=== PATIENT | female | born 1990 | race Caucasian/White ===

== ENCOUNTER 2023-07-20 16:40 | Emergency (ER) | payer OTHER ==
[~2023-07-20] VITALS: Ht 165.1 cm; Wt 75.9 kg
[2023-07-20] MEDS ORDERED: LIDO2SOL26 MT (17:12)
[2023-07-20] MEDS ORDERED: AZIT500T66 PO (17:12)
[2023-07-20] MEDS: cefTRIAXone SOD 1,000 MG VL IM ONE (17:16)
[2023-07-20] MEDS: LIDOCAINE VISCOUS 2% 15ML UD MT ONE (17:18)
[2023-07-20 17:26] VITALS: BP 154/73; PULSE 79; RESP 18; TEMP 99.6; O2SAT 98
== END 2023-07-20 17:27 | disposition home or self-care (01) ==
LOC: ER 16:40
DX: J03.90 Acute tonsillitis, unspecified (principal); J04.0 Acute laryngitis; Z79.899 Other long term (current) drug therapy
CPT/HCPCS: 96372; 99283; J0696

== ENCOUNTER 2023-09-02 18:20 | Emergency (ER) | payer OTHER ==
[~2023-09-02] VITALS: Ht 165.1 cm; Wt 75.9 kg
[~2023-09-02 18:20] MED LIST: AZIT500T66 PO; LIDO2SOL26 MT
[2023-09-02] MEDS: IOHEXOL 300 MG/ML 100ML BOTTLE IJ ONE (19:16)
[2023-09-02] MEDS: ONDANSETRON ODT 4 MG TAB PO ONE ×2 (19:25→21:16)
[2023-09-02] MEDS: HYDROmorphone HCL 2 MG/ML VL/or syr IM ONE (19:25)
[2023-09-02] MEDS: ONDANSETRON HCL 4 MG/2 ML VIAL IV ONE (19:33)
[2023-09-02] MEDS: HYDROmorphone HCL 2 MG/ML VL/or syr IV ONE ×2 (19:34→21:19)
[2023-09-02 19:59] LABS: Urine Bacteria None Seen /hpf (None Seen)
[2023-09-02 20:03] LABS: Urine Blood Negative /uL (Negative); Urine Clarity Clear (Clear); Urine Color Light-Yellow (Yellow); Urine Protein, UAD Negative (Negative); Urine Specific Gravity 1.014 (1.001-1.035); Urine Urobilinogen Normal (Negative); Urine WBC 1 /hpf (0 - 5)
[2023-09-02 20:09] LABS: Basophils # (auto) 0.1 10 ^3/uL (0-0.2); Basophils % (auto) 0.5 % (0.0-2.0); Eosinophils # (auto) 0.2 10 ^3/uL (0-0.8); Eosinophils % (auto) 1.5 % (0.0-7.0); Hematocrit 39.3 % (36.0-46.0); Lymphocytes # (auto) 3.1 10 ^3/uL (0.4-5.4); Lymphocytes % (auto) 29.1 % (10.0-50.0); Mean Corpuscular Hemoglobin 29.5 pg (28.0-32.0); Mean Corpuscular Hgb Conc. 33.1 g/dL (32.0-36.0); Mean Corpuscular Volume 89.2 fL (80.0-100.0); Monocytes # (auto) 0.9 10 ^3/uL (0-1.3); Monocytes % (auto) 8.1 % (0.0-12.0); Neutrophils # (auto) 6.5 10 ^3/uL (1.6-8.6); Neutrophils % (auto) 60.8 % (37.0-80.0); Nucleated Red Blood Cells % 0.1 %; Red Blood Cells 4.41 10^6/uL (4.0-5.20); White Blood Cell 10.7 10^3/uL (4.4-10.8)
[2023-09-02 20:20] LABS: Alanine Aminotransferase 80 U/L (7-40); Albumin 4.3 g/dL (3.2-4.8); Alkaline Phosphatase 103 U/L (46-116); Anion Gap 9 (5-15); Aspartate Aminotransferase 35 U/L (13-40); BUN/Creatinine Ratio 11.9 (10.0-20.0); Bilirubin, Total 0.3 mg/dL (0.2-1.0); Blood Urea Nitrogen 7 mg/dL (9-23); Calcium 9.6 mg/dL (8.7-10.4); Carbon Dioxide 24 mmol/L (20-30); Chloride 102 mmol/L (98-107); Glucose 90 mg/dL (74-106); Potassium 3.7 mmol/L (3.5-5.1); Sodium 135 mmol/L (136-145); Total Protein 7.2 g/dL (5.7-8.2)
[2023-09-02] MEDS: DexAMETHasone SOD PHOS 10MG/1ML VIAL INJ IV ONE (20:40)
[2023-09-02 21:23] VITALS: TEMP 97.7
[2023-09-02] MEDS ORDERED: PERCOT PO (21:23)
[2023-09-02] MEDS ORDERED: ZOFR4T PO (21:23)
[2023-09-02] MEDS ORDERED: IBUP-1455 PO (21:23)
[2023-09-02 21:49] VITALS: BP 152/97; PULSE 75; RESP 16; O2SAT 97
== END 2023-09-02 21:51 | disposition home or self-care (01) ==
LOC: ER 18:20
DX: R10.2 Pelvic and perineal pain (principal); Z79.899 Other long term (current) drug therapy
CPT/HCPCS: 36415; 74177; 80053; 81001; 85025; 96374; 96375; 96376; 99285; J1100; J1170; J2405; Q0162; Q9967

== ENCOUNTER 2024-01-20 09:27 | Emergency (ER) | payer OTHER ==
[~2024-01-20] VITALS: Ht 165.1 cm; Wt 75.0 kg
[~2024-01-20 09:27] MED LIST changes: +IBUP-1455 PO; +PERCOT PO; +ZOFR4T PO
[2024-01-20 09:53] VITALS: PULSE 74; RESP 14; O2SAT 97
[2024-01-20 10:28] LABS: Basophils # (auto) 0.1 10 ^3/uL (0-0.2); Basophils % (auto) 0.5 % (0.0-2.0); Eosinophils # (auto) 0.1 10 ^3/uL (0-0.8); Eosinophils % (auto) 0.8 % (0.0-7.0); Hematocrit 41.3 % (36.0-46.0); Hemoglobin 13.6 g/dL (12.2-16.2); Lymphocytes # (auto) 2.4 10 ^3/uL (0.4-5.4); Lymphocytes % (auto) 22.9 % (10.0-50.0); Mean Corpuscular Hemoglobin 29.6 pg (28.0-32.0); Mean Corpuscular Volume 89.7 fL (80.0-100.0); Monocytes # (auto) 0.7 10 ^3/uL (0-1.3); Monocytes % (auto) 6.6 % (0.0-12.0); Neutrophils # (auto) 7.1 10 ^3/uL (1.6-8.6); Neutrophils % (auto) 69.2 % (37.0-80.0); Platelet Count (auto) 307 10^3/uL (140-450); Red Blood Cells 4.61 10^6/uL (4.0-5.20); Red Cell Distribution Width 13.8 % (11.8-14.3); White Blood Cell 10.3 10^3/uL (4.4-10.8)
[2024-01-20] MEDS: SODIUM CHLORIDE 0.9% 500 ML IVB ONE (10:36)
[2024-01-20] MEDS: METOCLOPRAMIDE HCL 5MG/ml INJ 2ml VIAL IV ONE (10:36)
[2024-01-20 10:37] LABS: Alanine Aminotransferase 76 U/L (7-40); Albumin 4.4 g/dL (3.2-4.8); Alkaline Phosphatase 74 U/L (46-116); Anion Gap 7 (5-15); Aspartate Aminotransferase 19 U/L (13-40); BUN/Creatinine Ratio 26.5 (10.0-20.0); Bilirubin, Total 0.5 mg/dL (0.2-1.0); Blood Urea Nitrogen 13 mg/dL (9-23); Calcium 9.5 mg/dL (8.7-10.4); Carbon Dioxide 23 mmol/L (20-30); Chloride 104 mmol/L (98-107); Glucose 89 mg/dL (74-106); Magnesium 1.9 mg/dL (1.6-2.6); Potassium 3.8 mmol/L (3.5-5.1); Sodium 134 mmol/L (136-145); Total Protein 7.5 g/dL (5.7-8.2)
[2024-01-20] MEDS: KETOROLAC TROMETH 30 MG/ML 1ML VIAL IV ONE (10:37)
[2024-01-20 11:07] LABS: Lipase 38 U/L (12-53)
[2024-01-20] MEDS: IOHEXOL 300 MG/ML 100ML BOTTLE IJ ONE (11:09)
[2024-01-20 11:37] LABS: Urine Bacteria FEW /hpf (None Seen); Urine Blood Negative /uL (Negative); Urine Clarity Clear (Clear); Urine Protein, UAD Negative (Negative); Urine Specific Gravity 1.011 (1.001-1.035); Urine Urobilinogen Normal (Negative); Urine WBC 1 /hpf (0 - 5)
[2024-01-20 11:38] LABS: Urine Color Yellow (Yellow)
[2024-01-20 12:00] VITALS: TEMP 99
[2024-01-20] MEDS: NALBUPHINE HCL 10 MG/1ml INJECTION IV ONE (12:14)
[2024-01-20] MEDS: SODIUM CHLORIDE 0.9% 1,000 ML IV ONE (12:17)
[2024-01-20] MEDS: ONDANSETRON HCL 4 MG/2 ML VIAL IV ONE (13:47)
[2024-01-20] MEDS: MORPHINE SULFATE 4 MG/ML SYR/VIAL IV ONE (13:48)
[2024-01-20] MEDS ORDERED: DICL50TA2 PO (14:53)
[2024-01-20] MEDS ORDERED: HYDR-4902 PO (14:53)
[2024-01-20 15:08] VITALS: BP 142/79; PULSE 84; RESP 18; O2SAT 97
== END 2024-01-20 15:06 | disposition home or self-care (01) ==
LOC: EEVIPCON 09:27 → ER 09:27
DX: N83.12 Corpus luteum cyst of left ovary (principal); R10.2 Pelvic and perineal pain
CPT/HCPCS: 36415; 74177; 76830; 76856; 80053; 81001; 83690; 83735; 84702; 85025; 96361; 96374; 96375; 99285; J1885; J2270; J2300; J2405; J2765; J7040; Q9967

== ENCOUNTER 2024-04-25 16:09 | Emergency (ER) | payer OTHER ==
[~2024-04-25] VITALS: Ht 165.1 cm; Wt 70.0 kg
[~2024-04-25 16:09] MED LIST changes: +DICL50TA2 PO; +HYDR-4902 PO
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
[2024-04-25 16:54] VITALS: PULSE 87; RESP 16; TEMP 98.2; O2SAT 100
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
[2024-04-25] MEDS: KETOROLAC TROMETH 60MG/2ML VIAL IM ONE (17:07)
[2024-04-25 17:41] VITALS: BP 144/103
[2024-04-25] MEDS ORDERED: IBUP-1456 PO (17:46)
== END 2024-04-25 17:49 | disposition home or self-care (01) ==
LOC: ER 16:09
DX: S16.1XXA Strain of muscle, fascia and tendon at neck level, initial encounter (principal); S46.811A Strain of other muscles, fascia and tendons at shoulder and upper arm level, right arm, initial encounter; Z79.899 Other long term (current) drug therapy; Z98.890 Other specified postprocedural states; V49.88XA Car occupant (driver) (passenger) injured in other specified transport accidents, initial encounter; Y93.I9 Activity, other involving external motion; Y92.488 Other paved roadways as the place of occurrence of the external cause; Y99.8 Other external cause status
CPT/HCPCS: 72040; 73030; 96372; 99284; J1885

== ENCOUNTER 2025-01-31 15:06 | Emergency (ER) | payer OTHER ==
[~2025-01-31] VITALS: Ht 165.1 cm; Wt 73.0 kg
[~2025-01-31 15:06] MED LIST changes: +IBUP-1456 PO
--- NOTE | 2025-01-31 15:27 | ED.PDOC ---
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 Patient had a hysterectomy 2 weeks ago, since then has been experiencing pelvic pain, described as a pressure sensation, as well as shortness of breath. OBGYN recommended patient to come to ED for CT scan, post operative complications. Denies any PMHx as well as nausea, vomiting, diarrhea, headache, dizziness, fever, chills. No other symptoms or modifying factors present at this time. Vital signs were stable. Chief Complaint: Pelvic Pain Time Seen by MD: 15:20 Reviewed Notes: Nurses Notes, Medications, Allergies Allergies: Coded Allergies: NO KNOWN ALLERGIES (Unverified , 07/20/23) Home Meds Active Scripts Ibuprofen (Ibuprofen) 800 Mg Tab, 1 TAB PO TID, #30 TAB Prov:KAVON OLIVEROS 04/25/24 Hydrocodone-Acetaminophen (Hydrocodone Bitartrate/AC 5-325 mg) 1 Tab Tab, 1 TAB PO TID for 5 Days, #15 TAB Prov:RAYO HALL MD 01/20/24 Diclofenac Potassium (Diclofenac Potassium) 50 Mg Tab, 1 TAB PO TIDP for 10 Days, #30 TAB Prov:RAYO HALL MD 01/20/24 Ondansetron Odt 4MG Tab (ZOFRAN PO) 4 Mg Tb, 4 MG PO Q6HP PRN, #15 TAB ODT TAB-DISSOLVE IN MOUTH, THEN SWALLOW Prov:ANTHONY YEUNG PAC 09/02/23 Ibuprofen Micronized (Ibuprofen) 800 Mg Tab, 800 MG PO Q8HP PRN, #30 TAB Prov:ANTHONY YEUNG PAC 09/02/23 Oxycodone W/ Acetaminophen (Percocet 5/325MG) 1 Tab Tb, 1 TAB PO Q8HP PRN, #15 TAB Prov:ANTHONY YEUNG PAC 09/02/23 Lidocaine HCl (Mouth-Throat) (Lidocaine HCl Viscous) 2 % Cynthia, 5 ML MT TID, #100 ML Prov:KAVON OLIVEROS 07/20/23 Azithromycin (Azithromycin) 500 Mg Tab, 1 TAB PO DAILY, #5 TAB Prov:KAVON OLIVEROS 07/20/23 Information Source: Patient, Spouse Mode of Arrival: Ambulatory Timing: Hours Severity: Moderate Associated Signs and Symptoms: Other (pelvic pain) Past Medical History PAST MEDICAL HISTORY: Denies Surgical History: , Hysterectomy (2 weeks ago) Surgical History (Other): Recent hysterectomy VAULT INSTALLER History: No Pertinent VAULT INSTALLER History Family History Family History: Reviewed,noncontributory to illness Social History Smoker: Non-Smoker Alcohol: Denies ETOH Use Drugs: Denies Drug Use Lives In: Home Constitutional: denies: chills, diaphoresis, fatigue, fever, malaise, sweats, weakness, others EENTM: denies: blurred vision, double vision, ear bleeding, ear discharge, ear drainage, ear pain, ear ringing, eye pain, eye redness, hearing loss, mouth pain, mouth swelling, nasal discharge, nose bleeding, nose congestion, nose pain, photophobia, tearing, throat pain, throat swelling, voice changes, others Respiratory: reports: shortness of breath; denies: cough, hemoptysis, orthopnea, SOB at rest, SOB with excertion, stridor, wheezing, others Cardiovascular: denies: chest pain, dizzy spells, diaphoresis, Dyspnea on exertion, edema, irregular heart beat, left arm pain, lightheadedness, palpitations, PND, syncope, others Gastrointestinal: denies: abdomen distended, abdominal pain, blood streaked bowels, constipated, diarrhea, dysphagia, difficulty swallowing, hematemesis, melena, nausea, poor appetite, poor fluid intake, rectal bleeding, rectal pain, vomiting, others Genitourinary: reports: pain (pelvic); denies: abnormal vagina bleeding, burning, dyspareunia, dysuria, flank pain, frequency, hematuria, incontinence, , vagina discharge, urgency, others Neurological: denies: dizziness, fainting, headache, left sided numbness, left sided weakness, numbness, paresthesia, pre-existing deficit, right sided numbness, right sided weakness, seizure, speech problems, tingling, tremors, weakness, others Musculoskeletal: denies: back pain, gout, joint pain, joint swelling, muscle pain, muscle stiffness, neck pain, others Integumetry: denies: bruises, change in color, change in hair/nails, dryness, laceration, lesions, lumps, rash, wounds, others Allergic/Immunocompromised: denies: Difficulty Healing, Frequent Infections, Hives, Itching, others Hematologic/Lymphatic: denies: anemia, blood clots, easy bleeding, easy bruising, swollen glands, others Endocrine: denies: excessive hunger, excessive sweating, excessive thirst, excessive urination, flushing, intolerance to cold, intolerance to heat, unexplained weight gain, unexplained weight loss, others Psychiatric: denies: anxiety, bipolar disorder, depression, hopeless, panic disorder, schizophrenia, sleepless, suicidal, others All Other Systems: Reviewed and Negative Physical Exam General Appearance: Moderate Distress (Moderate distress due to pelvic pain concerns.), Normal HEENT: Normal ENT Inspection, Pharynx Normal, TMs Normal Neck: Full Range of Motion, Non-Tender, Normal, Normal Inspection Respiratory: Chest Non-Tender, Lungs Clear, No Accessory Muscle Use, No Respiratory Distress, Normal Breath Sounds Cardiovascular: No Edema, No JVD, No Murmur, No Gallop, Normal Peripheral Pulses, Regular Rate/Rhythm Breast Exam: Deferred Gastrointestinal: No Pulsatile Mass, Normal Bowel Sounds, Soft, Other (Diffuse bilateral pelvic tenderness to palpation. Postoperative scar noted. Tenderness throughout. No signs of acute trauma.) Genitalia: Deferred Pelvic: Deferred Rectal: Deferred Extremities: No calf tenderness, Normal capillary refill, Normal inspection, Normal range of motion, Non-tender, No pedal edema Musculoskeletal : Apperance: Normal Neurologic: Alert, No Motor Deficits, Normal Affect, Normal Mood, No Sensory Deficits Cerebellar Function: NOT DONE Reflexes: NOT DONE Skin: Dry, Normal Color, Warm Lymphatic: No Adenopathy Was a procedure done? Was a procedure done?: No Differential Diagnosis (VAULT INSTALLER) Vaginal Discharge: Other (Postoperative complication, abdominal pain, fibrotic disease, cystic mass) X-Ray, Labs, Meds, VS Vital Signs Date Time Temp Pulse Resp B/P (MAP) Pulse Ox O2 Delivery O2 Flow Rate FiO2 01/31/25 18:30 82 19 128/83 (98) 96 01/31/25 18:30 82 19 128/83 01/31/25 17:13 83 17 134/87 01/31/25 15:49 90 16 97 Room Air* 0 21 01/31/25 15:49 98.0 90 16 126/82 (97) 97 98.0 01/31/25 15:48 90 16 126/82 01/31/25 15:08 98.1 94 18 143/98 96 98.1 Lab Test 01/31/25 15:39 01/31/25 00:00 Range/Units White Blood Count 10.3 4.4-10.8 10^3/uL Red Blood Count 4.07 4.0-5.20 10^6/uL Hemoglobin 12.2 12.2-16.2 g/dL Hematocrit 36.4 36.0-46.0 % Mean Corpuscular Volume 89.4 80.0-100.0 fL Mean Corpuscular Hemoglobin 30.1 28.0-32.0 pg Mean Corpuscular Hemoglobin Concent 33.6 32.0-36.0 g/dL Red Cell Distribution Width 13.8 11.8-14.3 % Platelet Count 359 140-450 10^3/uL Mean Platelet Volume 7.9 6.9-10.8 fL Neutrophils (%) (Auto) 72.0 37.0-80.0 % Lymphocytes (%) (Auto) 18.4 10.0-50.0 % Monocytes (%) (Auto) 7.6 0.0-12.0 % Eosinophils (%) (Auto) 1.2 0.0-7.0 % Basophils (%) (Auto) 0.8 0.0-2.0 % Neutrophils # (Auto) 7.4 1.6-8.6 10 ^3/uL Lymphocytes # (Auto) 1.9 0.4-5.4 10 ^3/uL Monocytes # (Auto) 0.8 0-1.3 10 ^3/uL Eosinophils # (Auto) 0.1 0-0.8 10 ^3/uL Basophils # (Auto) 0.1 0-0.2 10 ^3/uL Nucleated Red Blood Cells 0.0 % D-Dimer, Quantitative 2.33 H 0.0-0.49 mg/L FEU Sodium Level 140 136-145 mmol/L Potassium Level 3.8 3.5-5.1 mmol/L Chloride Level 105 98-107 mmol/L Carbon Dioxide Level 25 20-31 mmol/L Anion Gap 10 5-15 Blood Urea Nitrogen 9 9-23 mg/dL Creatinine 0.74 0.550-1.02 mg/dL Glomerular Filtration Rate Calc 108 >90 mL/min BUN/Creatinine Ratio 12.2 10.0-20.0 Serum Glucose 118 H 74-106 mg/dL Calcium Level 9.3 8.7-10.4 mg/dL C-Reactive Protein High Sensitivity 0.63 <1.0 mg/dL Lipase 44 12-53 U/L Urine Color Light-yellow Yellow Urine Clarity Clear Clear Urine pH 6.5 5.0-9.0 Urine Specific [place] 1.015 1.001-1.035 Urine Protein Negative Negative Urine Ketones Negative Negative Urine Blood 1+ H Negative /uL Urine Nitrite Negative Negative Urine Bilirubin Negative Negative Urine Urobilinogen Normal Negative mg/dL Urine Leukocyte Esterase 2+ Negative /uL Urine RBC 2 0 - 4 /hpf Urine Microscopic WBC 4 0-5 /HPF Urine Squamous Epithelial Cells Few <5 /hpf Urine Bacteria None seen None Seen /hpf Urine Glucose Normal Normal mg/dL Current Medications Medications (Trade) Dose Ordered Sig/Meme Route Start Time Stop Time Status Last Admin Hydromorphone HCl (Dilaudid Injection) 1 mg ONCE ONCE IV 01/31/25 15:30 01/31/25 15:31 DC 01/31/25 15:48 Ondansetron HCl (Zofran) 4 mg ONCE ONCE IV 01/31/25 15:30 01/31/25 15:31 DC 01/31/25 15:48 Metoclopramide HCl (Reglan Injection) 10 mg ONCE ONCE IV 01/31/25 17:15 01/31/25 17:16 DC 01/31/25 17:26 Hydromorphone HCl (Dilaudid Injection) 1 mg ONCE ONCE IV 01/31/25 18:00 01/31/25 18:01 DC 01/31/25 18:30 X-Ray, Labs, Meds, VS Comment All studies performed the ED were evaluated by me personally. Serum and urine studies were unremarkable for any systemic concerns. CT of the abdomen and pelvis with contrast shows a 5.2 cm cystic mass displaced in the sigmoid colon. Hepatic goal and medically noted. Additional recommendation of a pelvic ultrasound was made. Pelvic ultrasound revealed a right adnexal cyst with internal debris. Advised patient of findings and additionally, advised follow up with her surgeon and primary care provider for conversation is related to today's visit. Time of 1ST Reevaluation: 19:21 Reevaluation 1ST: Improved Consultation: PCP Patient Education/Counseling: Diagnosis, Treatment, Prognosis Family Education/Counseling: Diagnosis, Treatment, Prognosis Departure 1 Departure Time of Disposition: 19:22 Impression: Primary Impression: Pelvic cyst in female Additional Impression: Hepatomegaly Disposition: HOME / SELF CARE / HOMELESS Condition: Stable Additional Instructions: Advised patient utilize medication as needed for symptomatic pain relief. Alma marques needs to follow up with her surgeon, primary care provider and specialist for continued conversation is related to today's visit and long-term management of her pelvic pain concerns. e-Prescriptions Ondansetron Odt 4MG Tab (ZOFRAN PO) 4 Mg Tb 4 MG PO Q6HP PRN, #20 TAB ODT TAB-DISSOLVE IN MOUTH, THEN SWALLOW Prov: ANTHONY YEUNG PAC 01/31/25 Oxycodone W/ Acetaminophen (Percocet 5/325MG) 1 Tab Tb 1 TAB PO Q6HP PRN, #20 TAB Prov: ANTHONY YEUNG PAC 01/31/25 Discharged With: Self, Spouse Critical Care Note Critical Care Time?: No Stability Stability form required: No Heart Score Heart Score: Heart Score Response (Comments) Value History N/A 0 EKG N/A 0 Age N/A 0 Risk Factors N/A 0 Troponin N/A 0 Total 0 I personally scribed for ANTHONY YEUNG PAC ([email or web address]) on 01/31/25 at 15:27. Electronically submitted by Pilar Chanel ([email or web address]). ANTHONY YEUNG PAC Jan 31, 2025 15:27
[2025-01-31] MEDS: ONDANSETRON HCL 4 MG/2 ML VIAL IV ONE (15:48)
[2025-01-31] MEDS: HYDROmorphone HCL 2 MG/ML VL/or syr IV ONE ×2 (15:48→18:30)
[2025-01-31 15:49] VITALS: PULSE 90; RESP 16; TEMP 98; O2SAT 97
[2025-01-31 16:05] LABS: Hematocrit 36.4 % (36.0-46.0); Hemoglobin 12.2 g/dL (12.2-16.2); Mean Corpuscular Hemoglobin 30.1 pg (28.0-32.0); Mean Corpuscular Volume 89.4 fL (80.0-100.0); Nucleated Red Blood Cells % 0.0 %
[2025-01-31 16:08] LABS: Chloride 105 mmol/L (98-107); Potassium 3.8 mmol/L (3.5-5.1); Sodium 140 mmol/L (136-145)
[2025-01-31 16:10] LABS: Calcium 9.3 mg/dL (8.7-10.4)
[2025-01-31 16:15] LABS: BUN/Creatinine Ratio 12.2 (10.0-20.0); Blood Urea Nitrogen 9 mg/dL (9-23); Glucose 118 mg/dL (74-106); Lipase 44 U/L (12-53)
[2025-01-31 16:16] LABS: Anion Gap 10 (5-15); Carbon Dioxide 25 mmol/L (20-31)
[2025-01-31 16:32] LABS: Urine Protein, UAD Negative (Negative)
[2025-01-31] MEDS: IOHEXOL 350 MG/ML 100ML IJ ONE (16:47)
[2025-01-31] MEDS: METOCLOPRAMIDE HCL 5MG/ml INJ 2ml VIAL IV ONE (17:26)
--- NOTE | 2025-01-31 17:34 | DVH ---
Exam: CT CT CHEST/AB/PL W CON- IV ONLY History: Intra-abdominal postoperative pain COMPARISON: CT CT AB PEL WITH IV CON ONLY on DOS: 01/20/24, CT CT AB PEL WITH IV CON ONLY on DOS: Technique: Multidetector spiral CT of the abdomen and pelvis was performed from lung bases to pubic s ymphysis. Intravenous contrast was administered during this examination. Portal venous imaging was obtained. Axial, coronal and sagittal multiplanar reformats were performed by the technologist on a separate workstation. Radiation Dose : 1. Abdomen/Pelvis: CTDIvol 24.05mGy, DLP 4.61 mGy*cm. CONTRAST: Type of contrast: Omnipaque 300 Contrast injected: 100 ml Contrast ingested: 0 ml Findings: Lung Bases: No acute or significant lung base finding. Normal heart size. No pleural or pericardial effusion. Liver: Mild hepatomegaly. Liver measures 20 cm in the craniocaudal dimension. No focal lesions. Norm al hepatic vascular enhancement. Gallbladder and Biliary Tree: Unremarkable Spleen: Unremarkable Pancreas: The pancreas is normal in appearance without focal lesions or abnormal enhancement. Adrenal Glands: Unremarkable Kidneys: No hydronephrosis. Bladder: Unremarkable Bowel: Stomach distended with fluid and debris.. Small bowel and colon are normal in caliber and dist ribution. The appendix is not visualized; however, no secondary findings of acute appendicitis ident ified. Ascites: Absent Lymphadenopathy: No mesenteric, retroperitoneal or periportal lymphadenopathy. Abdominal Wall and Mesentery: Unremarkable. Vasculature: The visualized abdominal aorta is normal in size and caliber. Abdominal and pelvic vess els demonstrate normal enhancement. Pelvic Organs: 5.2 cm cystic mass displacing the sigmoid colon from left to right, axial location 468 , series 3. Patient is status post hysterectomy since prior CT study of 09/02/2023. Pelvic ultrasoun d recommended Musculoskeletal: No aggressive focal bony lesions, acute fractures or dislocation. IMPRESSION: 1. Pelvic ultrasound recommended. 2. 5.2 cm cystic mass displacing the sigmoid colon from left to right, axial location 468, series 3. Patient is status post hysterectomy since prior CT study of Hepatomegaly, 20 cm Radiation optimization: All CT scans at this facility use at least one of these dose optimization rio hniques: automated exposure control mA and/or kV adjustment per patient size (includes targeted exam s where dose is matched to clinical indication) or iterative reconstruction.
[2025-01-31 18:30] VITALS: BP 128/83; PULSE 82; RESP 19; O2SAT 96
--- NOTE | 2025-01-31 18:54 | DVH ---
INDICATION: Pain TECHNIQUE: Multiple real-time grayscale transabdominal sonographic images along with color and duplex Doppler of the uterus and ovaries were obtained. COMPARISON: US PELVIC on DOS: 01/20/24, CT CT AB PEL WITH IV CON ONLY on DOS: 01/20/24, US TRANSVAGINAL U S NON OB on DOS: 01/20/24 FINDINGS: The uterus has been surgically removed. The right ovary not visualized. Appears to be an anechoic structure in the right adnexa with interna l debris. The left ovary not visualized Subsequent color and duplex Doppler interrogation of the ovaries demonstrated symmetric vascular flow to both ovaries, though this does not exclude the possibility of torsion due to the dual blood suppl y. IMPRESSION: 1. Status post hysterectomy. 2. Right adnexal cyst with internal debris.(5.69 x 4.06 x 4.65 cm)
[2025-01-31] MEDS ORDERED: PERCOT PO (19:24)
== END 2025-01-31 19:25 | disposition home or self-care (01) ==
LOC: ER 15:06
DX: N94.89 Other specified conditions associated with female genital organs and menstrual cycle (principal); R16.0 Hepatomegaly, not elsewhere classified; Z90.710 Acquired absence of both cervix and uterus; Z79.891 Long term (current) use of opiate analgesic; Z79.1 Long term (current) use of non-steroidal anti-inflammatories (NSAID); Z98.890 Other specified postprocedural states; Z79.899 Other long term (current) drug therapy
CPT/HCPCS: 36415; 71260; 74177; 76856; 80048; 81001; 83690; 85025; 85379; 86141; 96374; 96375; 96376; 99285; J1171; J2405; J2765; Q9967